=== PATIENT | male | born 1935 | race Caucasian/White ===

== ENCOUNTER 2023-01-10 07:51 | Emergency (ER) | payer OTHER ==
[~2023-01-10] VITALS: Ht 167.6 cm; Wt 68.0 kg
--- NOTE | 2023-01-10 07:58 | NUR ---
Patient to ER bed 3 to gown for evaluation. Side rails up. Report given to OPAL LEMUS.
[2023-01-10 08:07] VITALS: BP_SYST 161
--- NOTE | 2023-01-10 08:10 | NUR ---
DR MITTAL AT BEDSIDE FOR EXAM
--- NOTE | 2023-01-10 08:23 | NUR ---
Pt C/O of diarrhea X2 days Hx of HTN and Parkinsons AOX4 VSS Able to make needs known Family at bedside Will continue to monitor
[2023-01-10 08:57] LABS: BASOPHILS # (AUTO) 0.1 K/uL (0.0-0.2); BASOPHILS % (AUTO) 0.8 % (0.0-2.0); EOSINOPHILS # (AUTO) 0.5 K/uL (0.0-0.4); EOSINOPHILS % (AUTO) 6.2 % (0.0-4.0); HEMATOCRIT 40.6 % (36-54); HEMOGLOBIN 13.5 g/dL (14.0-18.0); LYMPHOCYTES # (AUTO) 1.1 K/uL (1.0-5.5); MEAN CORPUSCULAR HEMOGLOBIN 32 pg (27-31); MEAN CORPUSCULAR HGB CONC 33 % (32-36); MEAN CORPUSCULAR VOLUME 95 fL (79.0-98.0); MONOCYTES # (AUTO) 0.5 K/uL (0.0-1.0); MONOCYTES % (AUTO) 6.9 % (1.7-9.3); NEUTROPHILS # (AUTO) 5.4 K/uL (1.8-7.7); NEUTROPHILS % (AUTO) 71.1 % (40.0-70.0); PLATELET COUNT (AUTO) 135 K/uL (130-430); RED BLOOD CELL COUNT(AUTO) 4.29 MIL/uL (4.2-6.2); WHITE BLOOD COUNT (AUTO) 7.7 K/uL (4.8-10.8)
[2023-01-10 09:13] LABS: ANION GAP 3 (5-15); CALCIUM 9.9 mg/dL (8.4-11.0); CHLORIDE 106 mmol/L (98-107); CREATININE 1.13 mg/dL (0.55-1.30); GLUCOSE 87 mg/dL (70-99); UREA NITROGEN, BLOOD 16 mg/dL (8-21)
[2023-01-10 09:17] LABS: ALANINE AMINOTRANSFERASE 27 U/L (12-78); ALBUMIN 3.4 g/dL (3.4-4.8); ASPARTATE AMINOTRANSFERASE 15 U/L (10-37); LIPASE 114 U/L (73-393); PHOSPHORUS 2.3 mg/dL (2.7-4.5); TOTAL BILIRUBIN 0.5 mg/dL (0.0-1.0)
[2023-01-10] MEDS ORDERED: PEPTAB PO (09:58)
[2023-01-10] MEDS ORDERED: AUG875 PO (09:58)
--- NOTE | 2023-01-10 10:15 | NUR ---
Patient given written and verbal discharge instructions and verbalizes understanding. ER MD discussed with patient the results and treatment provided. Patient in stable condition. ID arm band removed. Rx of given. Patient educated on pain management and to follow up with PMD. Opportunity for questions provided and answered. Medication side effect fact sheet provided.
== END 2023-01-10 10:15 | disposition home or self-care (01) ==
LOC: SED 07:51
DX: K57.92 Diverticulitis of intestine, part unspecified, without perforation or abscess without bleeding (principal); R10.9 Unspecified abdominal pain; R19.7 Diarrhea, unspecified; I10 Essential (primary) hypertension; Z79.899 Other long term (current) drug therapy
CPT/HCPCS: 36415; 76376; 80053; 83690; 83735; 84100; 85025; 99284

== ENCOUNTER 2024-02-29 10:59 | Emergency (ER) | payer OTHER ==
[~2024-02-29] VITALS: Ht 162.6 cm; Wt 65.8 kg
[~2024-02-29 10:59] MED LIST: AUG875 PO; PEPTAB PO
[2024-02-29 11:11] VITALS: BP_SYST 182; PULSE 51; RESP 18; TEMP 98.3; O2SAT 98
[2024-02-29] MEDS: NACL 0.9% 1,000 ML IV ONE (12:03)
[2024-02-29 12:23] LABS: BILIRUBIN,URINE NEGATIVE (NEGATIVE); BLOOD, URINE NEGATIVE (NEGATIVE); CLARITY/URINE CLEAR (CLEAR); COLOR,URINE YELLOW (YELLOW); GLUCOSE,URINE NEGATIVE (NEGATIVE); KETONES,URINE NEGATIVE (NEGATIVE); LEUKOCYTE ESTERASE ,URINE TRACE (NEGATIVE); NITRITE, URINE NEGATIVE (NEGATIVE); PH,URINE 6.5 (5.0-8.0); PROTEIN URINE NEGATIVE (NEGATIVE); UROBILINOGEN,URINE 0.2 (0.2-1.0)
[2024-02-29 12:26] LABS: BASOPHILS # (AUTO) 0.1 K/uL (0.0-0.2); BASOPHILS % (AUTO) 0.9 % (0.0-2.0); EOSINOPHILS # (AUTO) 0.1 K/uL (0.0-0.4); EOSINOPHILS % (AUTO) 2.2 % (0.0-4.0); HEMATOCRIT 43.5 % (36-54); HEMOGLOBIN 14.9 g/dL (14.0-18.0); LYMPHOCYTES # (AUTO) 1.5 K/uL (1.0-5.5); LYMPHOCYTES % (AUTO) 23.1 % (20.5-51.5); MEAN CORPUSCULAR HEMOGLOBIN 32 pg (27-31); MEAN CORPUSCULAR HGB CONC 34 % (32-36); MEAN CORPUSCULAR VOLUME 94 fL (79.0-98.0); MONOCYTES # (AUTO) 0.5 K/uL (0.0-1.0); MONOCYTES % (AUTO) 7.4 % (1.7-9.3); NEUTROPHILS # (AUTO) 4.4 K/uL (1.8-7.7); NEUTROPHILS % (AUTO) 66.4 % (40.0-70.0); PLATELET COUNT (AUTO) 183 K/uL (130-430); RED BLOOD CELL COUNT(AUTO) 4.63 MIL/uL (4.2-6.2); RED CELL DISTRIBUTION WIDTH 13.8 % (9.0-15.0); WHITE BLOOD COUNT (AUTO) 6.7 K/uL (4.8-10.8)
[2024-02-29 12:35] LABS: BACTERIA,URINE None Seen /HPF (None Seen); RBC,URINE 0-3 /HPF (0-3)
[2024-02-29 12:57] LABS: ANION GAP 14 (5-15); CALCIUM 11.2 mg/dL (8.4-11.0); CARBON DIOXIDE 23 mmol/L (23-29); CHLORIDE 105 mmol/L (98-107); CREATININE 1.43 mg/dL (0.55-1.30); GLUCOSE 100 mg/dL (74-106); POTASSIUM 4.7 mmol/L (3.5-5.1); SODIUM SERUM 142 mmol/L (136-145); UREA NITROGEN, BLOOD 17 mg/dL (8-21)
[2024-02-29] MEDS ORDERED: iohexoL 350 mgI/mL, 100 ML INFUS..BTL IV ONE (14:11)
[2024-02-29 16:45] VITALS: BP_SYST 155; PULSE 73; RESP 18; TEMP 98.3; O2SAT 99
== END 2024-02-29 16:19 | disposition home or self-care (01) ==
LOC: SED 10:59
DX: R55 Syncope and collapse (principal); R00.1 Bradycardia, unspecified; I10 Essential (primary) hypertension; Z79.899 Other long term (current) drug therapy
CPT/HCPCS: 99285; 70450; 96360; 80048; 81001; 85025; 85379; 84484; 36415; 93005; 71275; 81000; 81015; J7030; Q9967